=== PATIENT | male | born 1960 | race Caucasian/White ===

== ENCOUNTER 2020-08-29 15:19 | Emergency (ER) | payer OTHER ==
--- NOTE | 2020-08-29 15:24 | EDM.PDOC ---
ED HPI GENERAL MEDICAL PROBLEM - General Stated Complaint: STUNG BY A BEE Time Seen by Provider: 08/29/20 15:40 Source of Information: Reports: Patient, RN, RN Notes Reviewed History Limitations: Reports: No Limitations - History of Present Illness INITIAL COMMENTS - FREE TEXT/NARRATIVE: Patient presents to the ED via personal vehicle stating he was stung by a bee in his bottom, right lip. He states the sting occured about two hours prior; he denies a history of known allergies to bee stings. He states he originally presented to [facility] in [place] where he received Benadryl and SoluMedrol IM - staff at [facility] request he come to examined in ED. He denies wheezing, shortness of breath, chest tightness, chest pain, palpitations, difficulty with speech, or difficulty swallowing. He does report he was given "a drink of red fluid" at [facility] prior to presenting to the ED. - Related Data Allergies Allergy/AdvReac Type Severity Reaction Status Date / Time No Known Allergies Allergy Verified 08/29/20 15:35 ED ROS ALLERGIC REACTION - Review of Systems Review Of Systems: Comprehensive ROS is negative, except as noted in HPI. ED EXAM GENERAL NO PERIP PULSE - Physical Exam Exam: See Below Exam Limited By: No Limitations General Appearance: Alert, WD/WN, No Apparent Distress Eye Exam: Bilateral Eye: EOMI, Normal Inspection, PERRL Throat/Mouth: No Airway Compromise, Inflammation. No: Normal Lips (Significant swelling to lower lip and right upper lip +3) Neck: Full Range of Motion. No: Tender Lateral, Tender Midline Respiratory/Chest: No Respiratory Distress, Lungs Clear, Normal Breath Sounds, No Accessory Muscle Use, Chest Non-Tender. No: Wheezing, Stridor, Accessory Muscle Use, Splinting Cardiovascular: Regular Rate, Rhythm. No: No Edema, No Gallop, No Murmur, No Rub Neurological: Alert, Oriented, CN II-XII Intact, No Motor/Sensory Deficits Skin Exam: Intact, Erythema, Petechiae (To corner of right lip) Course - Vital Signs Last Recorded V/S: Last Vital Signs Temp 98.6 F 08/29/20 15:28 Pulse 76 08/29/20 15:28 Resp 18 08/29/20 15:28 BP 147/66 H 08/29/20 15:28 Pulse Ox 99 08/29/20 15:28 - Orders/Labs/Meds Orders: Active Orders 24 hr Category Date Time Status Peripheral IV Care [RC] . DIRECTED Care 08/29/20 15:37 Active Sodium Chloride 0.9% [Saline Flush] Med 08/29/20 15:37 Active 10 ml FLUSH ASDIRECTED PRN Peripheral IV Insertion Adult [OM.PC] Stat Oth 08/29/20 15:37 Ordered Medication Orders Sodium Chloride (Saline Flush) 10 ml FLUSH ASDIRECTED PRN PRN Reason: Keep Vein Open Meds: Medications Generic Name Dose Route Start Last Admin Trade Name Freq PRN Reason Stop Dose Admin Sodium Chloride 10 ml 08/29/20 15:37 Saline Flush FLUSH ASDIRECTED PRN Keep Vein Open Discontinued Medications Generic Name Dose Route Start Last Admin Trade Name Freq PRN Reason Stop Dose Admin Famotidine 20 mg 08/29/20 15:36 08/29/20 15:43 Pepcid IVPUSH 08/29/20 15:37 20 mg ONETIME ONE Administration - Re-Assessments/Exams Free Text/Narrative Re-Assessment/Exam: 08/29/20 15:45 Famotidine 20mg IVP administered. Will monitor patient. 08/29/20 16:44 Swelling markedly decreased to lip and face. Patient continues to deny chest pain/pressure, shortness of breath, throat closing, difficulty breathing, wheezing, or difficulty with speech. Will discharge home with steroid and OTC Benadryl. Departure - Departure Time of Disposition: 16:45 Disposition: Home, Self-Care 01 Clinical Impression: Bee sting reaction Qualifiers: Encounter type: initial encounter Injury intent: undetermined intent Qualified Code(s): T63.444A - Toxic effect of venom of bees, undetermined, initial encounter - Discharge Information *PRESCRIPTION DRUG MONITORING PROGRAM REVIEWED*: Not Applicable *COPY OF PRESCRIPTION DRUG MONITORING REPORT IN PATIENT CARYL: Not Applicable Instructions: Bee, Wasp, or Hornet Sting, Adult, Anaphylactic Reaction, Adult Additional Instructions: Rx: Prednisone OTC Benadryl 50mg every six hours, as swelling persists. Follow up with primary care provider if significant swelling persists past five days, or to the ED sooner should swelling worsen or should shortness of breath/wheezing develop. Care Plan Goals: Sepsis Event Note (ED) - Focused Exam Vital Signs: Vital Signs Temp Pulse Resp BP Pulse Ox 08/29/20 15:28 98.6 F 76 18 147/66 H 99 - My Orders Last 24 Hours: My Active Orders 08/29/20 15:37 Peripheral IV Care [RC] . DIRECTED Sodium Chloride 0.9% [Saline Flush] 10 ml FLUSH ASDIRECTED PRN Peripheral IV Insertion Adult [OM.PC] Stat - Assessment/Plan Last 24 Hours: My Active Orders 08/29/20 15:37 Peripheral IV Care [RC] . DIRECTED Sodium Chloride 0.9% [Saline Flush] 10 ml FLUSH ASDIRECTED PRN Peripheral IV Insertion Adult [OM.PC] Stat
[2020-08-29] MEDS ORDERED: Famotidine 20 MG/2 ML SDV IVPUSH ONE (15:36)
[2020-08-29] MEDS ORDERED: Sodium Chloride 0.9% 10 ML Syringe FLUSH PRN (15:37)
== END 2020-08-29 17:12 | disposition home or self-care (01) ==
LOC: DL.ED 15:19
DX: T63.441A Toxic effect of venom of bees, accidental (unintentional), initial encounter (principal)
CPT/HCPCS: 96374; 99282; 99283; J3490